=== PATIENT | male | born 1965 | race Caucasian/White ===

== ENCOUNTER 2019-11-05 17:58 | Inpatient (IN) | payer OTHER ==
[~2019-11-05] VITALS: Ht 182.9 cm; Wt 122.5 kg
--- OUTSIDE RECORDS SUMMARY | 2019-11-05 18:02 | XMS REPORT | Continuity of Care Document ---
Author Author [facility] t Organization [facility] Address [address] [place] [address] Phone Unavailable Care Team Providers Care Data Entry Representative Name Role Phone Jeovany Aquino DO Attphys Ling RODRIGUEZ, Xiao Reed Attphys Doctor Unassigned, Name No Attphys Unavailable Nida RODRIGUEZ, Chanel Attphys Lab, - [facility] Attphys Unavailable Gabriel RODRIGUEZ, Jennifer Attphys Ling RODRIGUEZ, Xiao Reed Admphys Problems This patient has no known problems. Allergies, Adverse Reactions, Alerts This patient has no known allergies or adverse reactions. Medications This patient has no known medications. Procedures This patient has no known procedures. Encounters Start Date/Time End Date/Time [facility] ID Source 2019-10-10 08:12:52 2019-10-10 15:15:00 Emergency M Jeovany Blood Candice Marie [facility] ([facility]) [id number] 2019-10-07 00:00:00 2019-10-07 00:00:00 Orders Only D octor Unassigned, [place] [facility] [id number] 2019-09-10 00:00:00 2019-09-10 00:00:00 Orders Only D octor Unassigned, [place] [facility] [id number] 2019-08-25 09:00:00 2019-08-25 09:10:00 Telemedicine Visit EzequielChanel akins [facility] [id number] 2019-07-29 00:00:00 2019-07-29 00:00:00 Orders Only D octor Unassigned, [place] [facility] [id number] 2019-07-27 07:31:03 2019-07-27 07:46:03 Orthodontic Treatment Coordinator Visit Tameka florence [facility] ([facility]) [id number] 2019-07-22 00:00:00 2019-07-22 00:00:00 [facility] [id number] 2019-07-21 14:30:45 2019-07-21 14:50:45 Office Visit Cindy denise [facility] [id number] Results This patient has no known results.
[2019-11-05] MEDS ORDERED: MEPERIDINE HCL/PF 25 MG/0.5 ML AMP IV PRN (18:30)
--- NOTE | 2019-11-05 19:00 | NUR ---
Completed bedside nursing shift report with morning nurse. Pt alert and oriented to name, lying in bed HOB 30 degrees. c/o severe pain to rectum. Call light within reach. Bed low and locked. Will continue to monitor.
[2019-11-05] MEDS ORDERED: HYDRALAZINE HCL 20 MG/ML VIAL IV PRN (19:30)
[2019-11-05] MEDS ORDERED: NICOTINE 21 MG/EA PATCH TOP PRN (19:30)
[2019-11-05 20:00] VITALS: BP 142/89
[2019-11-05 20:21] LABS: BASOPHILS % 0.2 % (0.0-1.0); EOSINOPHILS % 0.3 % (0.0-6.0); HEMATOCRIT 32.4 % (38.2-49.6); HEMOGLOBIN 10.3 g/dL (14.0-18.0); LYMPHOCYTES # (AUTO) 1.9 (1.0-3.2); LYMPHOCYTES % 15.8 % (18.0-39.1); MEAN CORPUSCULAR HEMOGLOBIN 29.3 pg (28-32); MEAN CORPUSCULAR HGB CONC 31.8 g/dL (31-35); MONOCYTES # (AUTO) 0.9 (0.2-0.8); NEUTROPHILS # (AUTO) 9.2 (2.1-6.9); NEUTROPHILS % 75.3 % (38.7-80.0); PLATELET COUNT 399 x10e3/uL (140-360); RED BLOOD COUNT 3.52 x10e6/uL (4.3-5.7); RED CELL DISTRIBUTION WIDTH 13.6 % (11.7-14.4)
[2019-11-05 20:38] LABS: ALANINE AMINOTRANSFERASE 16 IU/L (0-55); ALBUMIN 2.9 g/dL (3.5-5.0); ALBUMIN/GLOBULIN RATIO 0.8 (0.8-2.0); ALKALINE PHOSPHATASE 70 IU/L (40-150); ANION GAP 16.6 mmol/L (8-16); BLOOD UREA NITROGEN 15 mg/dL (7-26); BUN/CREATININE RATIO 15 (6-25); CALCIUM 8.6 mg/dL (8.4-10.2); CARBON DIOXIDE 25 mmol/L (22-29); CHLORIDE 106 mmol/L (98-107); CREATININE, SERUM 1.02 mg/dL (0.72-1.25); EST GLOMERULAR FILTRATION RATE > 60 ML/MIN (60-); GLUCOSE 89 mg/dL (74-118); POTASSIUM 3.6 mmol/L (3.5-5.1); SODIUM 144 mmol/L (136-145)
[2019-11-05 20:49] LABS: ERYTHROCYTE SEDIMENTATION RATE 79 mm/hr (0-13)
[2019-11-05] MEDS ORDERED: SODIUM CHLORIDE 0.9% 250ML 250 ML ONE (21:06)
[2019-11-05] MEDS: METRONIDAZOLE 500MG/NS 100ML 100 ML IV SCH (21:15)
[2019-11-05] MEDS: MORPHINE SULFATE INJ 4 MG/ML INJ 1ML IV PRN (21:15)
--- NOTE | 2019-11-05 21:15 | NUR ---
x2 attempts unsuccessfully for IV, charged nurse started 20g IV right hand, Pt tolerated well. Addendum: 11/06/19 at 0342 by Joel Centeno RN prn IV morphine 4mg given for 9/10 rectal pain.
[2019-11-05] MEDS: PANTOPRAZOLE 40 MG 10ML VIAL IV SCH (21:22)
--- NOTE | 2019-11-05 21:30 | NUR ---
x1 attempt 20g IV right AC for CT scan with contrast, Pt tolerated well.
[2019-11-05] MEDS ORDERED: SODIUM CHLORIDE 0.9% 50ML 50 ML ONE (21:34)
[2019-11-05] MEDS ORDERED: IOPAMIDOL 370 MG/ML 200 ML INFUS..BTL INJ ONE (21:34)
--- NOTE | 2019-11-05 22:18 | Diagnostic Imaging Report ---
EXAM: CT Abdomen and Pelvis WITH contrast INDICATION: ^JEANNA DZ ^[id number] ^0 ^Y COMPARISON: None. TECHNIQUE: Abdomen and pelvis were scanned utilizing a multidetector helical scanner from the lung base to the pubic symphysis after administration of IV contrast. Coronal and sagittal reformations were obtained. Dose modulation, iterative reconstruction, and/or weight based adjustment of the mA/kV was utilized to reduce the radiation dose to as low as reasonably achievable. Routine protocol was performed. Scan was performed when during portal venous phase. IV CONTRAST: 100 mL of Isovue-370 ORAL CONTRAST: None COMPLICATIONS: None RADIATION DOSE: Total DLP: 788.32 mGy*cm Estimated effective dose: (DLP x 0.015 x size factor) mSv CTDIvol has been reviewed. It is below the limits set by the Radiation Protocol Committee (RPC). FINDINGS: LINES and TUBES: None. LOWER THORAX: Unremarkable HEPATOBILIARY: No focal hepatic lesions. No biliary ductal dilation. GALLBLADDER: No radio-opaque stones or sludge. No wall thickening. SPLEEN: No splenomegaly. PANCREAS: No focal masses or ductal dilatation. ADRENALS: No adrenal nodules KIDNEYS/URETERS: Kidneys enhance symmetrically. No hydronephrosis. No cystic or solid mass lesions. No stones. GI TRACT: No abnormal distention or evidence of bowel obstruction. Mild wall thickening of the sigmoid colon. Appendix is normal. PELVIC ORGANS/BLADDER: Unremarkable. LYMPH NODES: No lymphadenopathy. VESSELS: Unremarkable. PERITONEUM / RETROPERITONEUM: No free air or fluid. BONES: Degenerative changes of spine, most notable at L4-L5. SOFT TISSUES: Unremarkable. IMPRESSION: 1. Mild sigmoid colon wall thickening without mucosal hyperenhancement or surrounding inflammation, could be due to underdistention or mild infectious/inflammatory colitis in the appropriate clinical context. Signed by: Dr. Santiago Chavez MD on 11/05/2019 10:15 PM
[2019-11-05] MEDS: METHYLPREDNISOLONE SOD SUCC 125 MG/2ML VIAL IV SCH (22:28)
[2019-11-05 22:30] VITALS: BP 142/89
[2019-11-05] MEDS ORDERED: PRILOSEC10 M1 (22:40)
[2019-11-05] MEDS ORDERED: PENTASA500 MG PO (22:40)
[2019-11-05] MEDS ORDERED: NORCO 10-325 T1 EACH PO (22:41)
[2019-11-05 22:43] VITALS: BP 142/89
[2019-11-05] MEDS: AZTREONAM 1 GM/NS 50 ML 50 ML IV SCH (23:00)
[2019-11-06] VITALS (8 sets, daily range): BP systolic 125–166; BP diastolic 73–90
[2019-11-06] MEDS: MORPHINE SULFATE INJ 4 MG/ML INJ 1ML IV PRN ×6 (00:30→19:45)
--- NOTE | 2019-11-06 01:00 | Consultation ---
DATE OF CONSULTATION: 11/05/2019 HISTORY OF PRESENT ILLNESS: The patient is a 54-year-old very well known to me who has a history of Crohn's disease and he had a colonoscopy one month ago, which showed evidence of active Crohn's. He has been placed on the p.o. prednisone and along with his Pentasa, but he continued to have a problems with abdominal pain, diarrhea and rectal bleeding. He failed outpatient treatment and he is admitted to the hospital for further management. He is waiting to start on Humira and so far his insurance has not approved that he yet. PAST MEDICAL HISTORY: Significant for history of Crohn's disease as mentioned before. ALLERGIES: NONE. SOCIAL HISTORY: No alcohol use. MEDICATIONS: At home, including Pentasa and also Nexium, prednisone on a tapering dose and he is waiting. SOCIAL HISTORY: No alcohol use. FAMILY HISTORY: Noncontributory. REVIEW OF SYSTEMS: Denies any chest pain. Denies any shortness of breath. Denies any dysphagia, odynophagia. Denies any dysuria, hematuria, or any kind of syncopal episode. PHYSICAL EXAMINATION: GENERAL: The patient is awake, alert, appears to be stable, in no acute distress at this point. VITAL SIGNS: Afebrile, currently with stable vital signs. HEAD, EYES, EARS, NOSE, AND THROAT: Normocephalic, atraumatic. Sclerae are anicteric. NECK: Supple. HEART: Regular. ABDOMEN: There is no distention at this point. There is diffuse tenderness, and there is no rebound or mass. IMPRESSION: 1. Exacerbations of Crohn's disease. Failed outpatient treatment with p.o. prednisone. 2. History of reflux. RECOMMENDATION: Admit to the hospital. We will obtain a CT scan, labs, start on Solu-Medrol IV and also with IV antibiotic. Also obtain stool for C diff as well as COVID test. MD KAMILLA Bobo/MODL /[id number] cc: Mohamud Avilez MD
--- NOTE | 2019-11-06 02:30 | History and Physical ---
CHIEF COMPLAINT: Persistent rectal bleed for the past days and also abdominal pain. HISTORY OF PRESENT ILLNESS: This is a 54-year-old male, who was diagnosed with Crohn's disease back in 2001. The patient since then has off and on exacerbation. He recently had an endoscopy, both upper and lower endoscopy done. He has some ulcer and ulcer areas in the colon. He was started on oral prednisone for the past three weeks, did not improve. Matter of fact, he for the past week or so, having increasing rectal bleed, bright red blood per rectum associated with abdominal pain quite significantly that the patient is now admitted to the hospital for IV steroids, antibiotics, and pain control. PAST MEDICAL HISTORY: Crohn's disease, moderate obesity, reflux gastritis, hypertension, chronic anemia secondary to Crohn's disease, and lower back herniated disk. PAST SURGICAL HISTORY: Colonoscopy, lower back surgery, hiatal hernia repair, and tonsillectomy. SOCIAL HISTORY: The patient is a smoker. He does not drink alcohol. No regular drugs. ALLERGIES: NO KNOWN ALLERGIES. CURRENT MEDICATION: At home, aspirin, prednisone, Prilosec, Lovaza, [place] 10 mg, Pentasa. PHYSICAL EXAMINATION: VITAL SIGNS: Temperature is 98, blood pressure 136/62, pulse rate is 90, and respirations 18. GENERAL: The patient is awake. He is not in any distress. He does have some abdominal pain. HEENT: Normocephalic and atraumatic. Pupils reactive. Anicteric. NECK: Supple grossly. PULMONARY: Diminished breath sounds. CARDIOVASCULAR: Regular rate and rhythm. ABDOMEN: Obese. Tenderness with no guarding or rebound tenderness. EXTREMITIES: No cyanosis or edema. NEUROLOGIC: There is no focal deficit. Moving all extremities. LABORATORY: Still pending. CT scan of abdomen and pelvis pending. IMPRESSION: 1. Exacerbation of Crohn's disease, failed outpatient treatment with prednisone, Pentasa, and Lovaza. 2. History of biologic treatment. Did not agreeable with Remicade. 3. Rectal bleed secondary to the above. 4. Abdominal pain from the above. 5. Multiple baseline problems. PLAN: Obtain outpatient lab work including screening for COVID, in case the patient will need procedures. C. diff toxin, CBC, CMP, CRP with ESR and finally the TSH. Azactam 1 g q.8. Metronidazole 500 mg IV q.8. Solu-Medrol 60 mg IV q.8. Morphine sulfate 4 mg IV q.3 p.r.n. for pain. Protonix 40 mg q.12. Nicotine patch as needed. Hydralazine p.r.n. We will monitor the patient closely and adjust his medication depending on the lab results, CT scan and check the patient's hemoglobin and hematocrit as well. MD YENY Morales/PADMAJA /[id number]
[2019-11-06] MEDS: DEXTROSE 5%/0.45% SOD CHL 1,000 ML IV SCH ×2 (03:20→21:00)
[2019-11-06] MEDS: METRONIDAZOLE 500MG/NS 100ML 100 ML IV SCH ×3 (04:52→21:00)
[2019-11-06] MEDS: AZTREONAM 1 GM/NS 50 ML 50 ML IV SCH ×3 (06:00→22:44)
[2019-11-06] MEDS: METHYLPREDNISOLONE SOD SUCC 125 MG/2ML VIAL IV SCH ×3 (06:01→22:00)
--- NOTE | 2019-11-06 06:47 | NUR ---
BS ROUNDS COMPLETED WITH MORNING NURSE, PT NO ACUTE DISTRESS.
--- NOTE | 2019-11-06 07:26 | NUR ---
PATIENT IN BED WITH HEAD OF BED ELEVATED WATCHING TV, NO DISTRESS NOTED. IV FLUID INFUSING ORDERED. BED IN LOWER POSITION, CALL LIGHT AT REACH.
[2019-11-06] MEDS: PANTOPRAZOLE 40 MG 10ML VIAL IV SCH ×2 (09:15→21:00)
[2019-11-06] MEDS: MESALAMINE 500 MG CAPCR PO SCH ×4 (09:16→21:00)
[2019-11-06] MEDS ORDERED: LEVOFLOXACIN 500MG/D5W 100ML 100 ML IV SCH (11:00)
--- NOTE | 2019-11-06 11:19 | NUR ---
STOOL SPECIMEN COLLECTED AND SENT TO THE LAB.
--- NOTE | 2019-11-06 16:04 | NUR ---
SPOKE WITH DR MORLEY REGARDING ABNORMAL LAB RESULT, NO NEW ORDER RECEIVED.
--- NOTE | 2019-11-06 18:55 | NUR ---
Completed bedside nursing report with morning nurse. Pt alert and orient, lying in bed HOB 45 degrees. c/o rectal/abd pain, will f/u with pain regime. Call light within reach. Bed low and locked.
[2019-11-07] VITALS (10 sets, daily range): BP systolic 123–149; BP diastolic 58–90
[2019-11-07] MEDS: METRONIDAZOLE 500MG/NS 100ML 100 ML IV SCH ×3 (04:58→21:10)
[2019-11-07] MEDS: MORPHINE SULFATE INJ 4 MG/ML INJ 1ML IV PRN ×4 (06:00→14:20)
[2019-11-07] MEDS: METHYLPREDNISOLONE SOD SUCC 125 MG/2ML VIAL IV SCH ×3 (06:00→22:13)
[2019-11-07] MEDS: AZTREONAM 1 GM/NS 50 ML 50 ML IV SCH ×3 (06:45→21:11)
[2019-11-07 07:09] LABS: BASOPHILS % 0.2 % (0.0-1.0); HEMATOCRIT 38.2 % (38.2-49.6); HEMOGLOBIN 11.9 g/dL (14.0-18.0); LYMPHOCYTES # (AUTO) 1.2 (1.0-3.2); MEAN CORPUSCULAR HEMOGLOBIN 28.5 pg (28-32); MEAN CORPUSCULAR HGB CONC 31.2 g/dL (31-35); MEAN CORPUSCULAR VOLUME 91.4 fL (81-99); MONOCYTES # (AUTO) 0.6 (0.2-0.8); MONOCYTES % 3.6 % (4.4-11.3); NEUTROPHILS # (AUTO) 15.5 (2.1-6.9); NEUTROPHILS % 88.4 % (38.7-80.0); PLATELET COUNT 507 x10e3/uL (140-360); RED BLOOD COUNT 4.18 x10e6/uL (4.3-5.7); RED CELL DISTRIBUTION WIDTH 13.3 % (11.7-14.4)
--- NOTE | 2019-11-07 07:18 | NUR ---
PATIENT IN BED RESTING WITH EYES CLOSED, NO DISTRESS NOTED. IV ANTIBIOTIC INFUSING ORDERED. BED IN LOWER POSITION, CALL LIGHT AT REACH.
[2019-11-07] MEDS: MESALAMINE 500 MG CAPCR PO SCH ×4 (09:09→21:10)
[2019-11-07] MEDS: PANTOPRAZOLE 40 MG 10ML VIAL IV SCH ×2 (09:09→21:10)
[2019-11-07] MEDS ORDERED: VANCOMYCIN 250MG/5ML ORAL SOLN PO SCH (10:30)
--- NOTE | 2019-11-07 12:01 | NUR ---
MD IN TO SEE PATIENT, NEW ORDER RECEIVED.
--- NOTE | 2019-11-07 15:31 | NUR ---
PATIENT OUT OF BED TO CHAIR TALKING TO FAMILY MEMBER VISITING. CALL LIGHT AT REACH.
[2019-11-07] MEDS: DEXTROSE 5%/0.45% SOD CHL 1,000 ML IV SCH ×2 (15:39→19:51)
[2019-11-07] MEDS: HYDROCODONE/APAP 10MG-325MG TAB PO PRN ×2 (16:20→22:00)
[2019-11-07] MEDS: VANCOMYCIN 250MG/5ML ORAL SOLN PO SCH (18:00)
--- NOTE | 2019-11-07 19:15 | NUR ---
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
[2019-11-08] VITALS (9 sets, daily range): BP systolic 131–166; BP diastolic 82–91
[2019-11-08] MEDS: VANCOMYCIN 250MG/5ML ORAL SOLN PO SCH ×5 (00:27→23:56)
[2019-11-08] MEDS: MORPHINE SULFATE INJ 4 MG/ML INJ 1ML IV PRN ×3 (02:44→13:05)
[2019-11-08] MEDS: METRONIDAZOLE 500MG/NS 100ML 100 ML IV SCH ×3 (04:31→23:37)
[2019-11-08] MEDS: HYDROCODONE/APAP 10MG-325MG TAB PO PRN ×4 (04:33→23:42)
[2019-11-08] MEDS: AZTREONAM 1 GM/NS 50 ML 50 ML IV SCH ×3 (05:26→23:41)
[2019-11-08] MEDS: METHYLPREDNISOLONE SOD SUCC 125 MG/2ML VIAL IV SCH ×3 (05:26→22:00)
[2019-11-08 06:34] LABS: BASOPHILS % 0.1 % (0.0-1.0); HEMATOCRIT 33.7 % (38.2-49.6); HEMOGLOBIN 10.5 g/dL (14.0-18.0); LYMPHOCYTES # (AUTO) 0.6 (1.0-3.2); LYMPHOCYTES % 5.3 % (18.0-39.1); MEAN CORPUSCULAR HEMOGLOBIN 28.8 pg (28-32); MEAN CORPUSCULAR HGB CONC 31.2 g/dL (31-35); MEAN CORPUSCULAR VOLUME 92.3 fL (81-99); MONOCYTES # (AUTO) 0.3 (0.2-0.8); MONOCYTES % 2.2 % (4.4-11.3); NEUTROPHILS # (AUTO) 10.7 (2.1-6.9); NEUTROPHILS % 91.4 % (38.7-80.0); PLATELET COUNT 403 x10e3/uL (140-360); RED BLOOD COUNT 3.65 x10e6/uL (4.3-5.7); RED CELL DISTRIBUTION WIDTH 13.2 % (11.7-14.4)
[2019-11-08 06:48] LABS: ANION GAP 16.2 mmol/L (8-16); BLOOD UREA NITROGEN 16 mg/dL (7-26); BUN/CREATININE RATIO 18 (6-25); CALCIUM 9.1 mg/dL (8.4-10.2); CARBON DIOXIDE 23 mmol/L (22-29); CHLORIDE 106 mmol/L (98-107); CREATININE, SERUM 0.88 mg/dL (0.72-1.25); EST GLOMERULAR FILTRATION RATE > 60 ML/MIN (60-); GLUCOSE 162 mg/dL (74-118); POTASSIUM 4.2 mmol/L (3.5-5.1); SODIUM 141 mmol/L (136-145)
--- NOTE | 2019-11-08 07:15 | NUR ---
PATIENT IN BED WITH READING HIS BOOK, NO COMPLAIN VOICED. ALL PERSONAL ITEMS CLOSE TO PATIENT, CALL LIGHT AT REACH.
[2019-11-08] MEDS: DEXTROSE 5%/0.45% SOD CHL 1,000 ML IV SCH ×2 (08:45→21:00)
[2019-11-08] MEDS: PANTOPRAZOLE 40 MG 10ML VIAL IV SCH ×2 (09:17→23:37)
[2019-11-08] MEDS: MESALAMINE 500 MG CAPCR PO SCH ×4 (09:17→21:00)
--- NOTE | 2019-11-08 11:11 | NUR ---
PATIENT ASSISTED WITH SHOWER, LINENS CHANGED. OUT OF BED TO CHAIR WATCHING TV. CALL LIGHT AT REACH.
--- NOTE | 2019-11-08 15:57 | NUR ---
MD IN TO SEE PATIENT, NO NEW ORDER RECEIVED.
--- NOTE | 2019-11-08 18:32 | NUR ---
PATIENT NOTED WITH B/P OF 161/85. PRN HYDRALAZINE GIVEN ORDERED. B/P RECHECKED WITH THE READING OF 140/68. WILL CLOSELY MONITOR.
--- NOTE | 2019-11-08 18:52 | NUR ---
BEDSIDE SHIFT REPORT GIVEN TO ON COMING NURSE. PATIENT IN BED WITH CALL LIGHT AT REACH.
--- NOTE | 2019-11-08 19:10 | NUR ---
Bedside shift report received from Jeni CARPIO.Pt is aleert and oriented x3. Respirations are even and unlabored.piv rt hand 20 g - site healthy.isolation for CDif.Call light within reach. Bed in low position.
[2019-11-09] VITALS (8 sets, daily range): BP systolic 119–164; BP diastolic 68–94
[2019-11-09] MEDS: METRONIDAZOLE 500MG/NS 100ML 100 ML IV SCH ×3 (06:09→20:53)
[2019-11-09] MEDS: VANCOMYCIN 250MG/5ML ORAL SOLN PO SCH ×3 (06:10→17:37)
[2019-11-09] MEDS: METHYLPREDNISOLONE SOD SUCC 125 MG/2ML VIAL IV SCH (06:15)
[2019-11-09] MEDS: AZTREONAM 1 GM/NS 50 ML 50 ML IV SCH ×3 (06:30→22:00)
--- NOTE | 2019-11-09 07:00 | NUR ---
RECEIVED BEDSIDE REPORT. PT IS ALERT RESTING IN BED, NO S/S OF DISTRESS. CALL LIGHT WITHIN REACH AND INSTRUCTED PT TO CALL RN FOR HELP
[2019-11-09] MEDS: MESALAMINE 500 MG CAPCR PO SCH ×4 (09:19→20:53)
[2019-11-09] MEDS: HYDROCODONE/APAP 10MG-325MG TAB PO PRN ×4 (09:20→21:45)
[2019-11-09] MEDS: PANTOPRAZOLE 40 MG 10ML VIAL IV SCH ×2 (09:23→20:53)
[2019-11-09] MEDS: METHYLPREDNISOLONE SOD SUCC 40 MG/ML VIAL 1ML IV SCH ×2 (14:00→22:00)
[2019-11-09] MEDS ORDERED: METHYLPREDNISOLONE SOD SUCC 125 MG/2ML VIAL IV SCH (14:00)
--- NOTE | 2019-11-09 15:51 | NUR ---
Dr. Steele making rounds. physician states that the patient is "not ready to go home" from a medical standpoint.
--- NOTE | 2019-11-09 18:50 | NUR ---
Nursing shift report completed bedside with morning nurse. Pt alert and oriented to name, lying in bed HOB 30 degrees. c/o mild pain to rectum, previously medicated. Call light within reach. Bed low and locked. Will continue to monitor.
[2019-11-10] VITALS (8 sets, daily range): BP systolic 124–159; BP diastolic 78–98
[2019-11-10] MEDS: HYDROCODONE/APAP 10MG-325MG TAB PO PRN ×5 (03:20→20:30)
[2019-11-10] MEDS: METRONIDAZOLE 500MG/NS 100ML 100 ML IV SCH ×3 (05:30→20:53)
[2019-11-10] MEDS: VANCOMYCIN 250MG/5ML ORAL SOLN PO SCH ×4 (05:53→17:40)
[2019-11-10] MEDS: METHYLPREDNISOLONE SOD SUCC 40 MG/ML VIAL 1ML IV SCH ×3 (05:53→21:49)
[2019-11-10 06:31] LABS: BASOPHILS % 0.2 % (0.0-1.0); EOSINOPHILS % 0.1 % (0.0-6.0); HEMATOCRIT 35.2 % (38.2-49.6); HEMOGLOBIN 10.9 g/dL (14.0-18.0); LYMPHOCYTES # (AUTO) 1.2 (1.0-3.2); MEAN CORPUSCULAR HEMOGLOBIN 28.2 pg (28-32); MONOCYTES # (AUTO) 0.9 (0.2-0.8); MONOCYTES % 8.1 % (4.4-11.3); NEUTROPHILS # (AUTO) 8.4 (2.1-6.9); NEUTROPHILS % 78.7 % (38.7-80.0); PLATELET COUNT 389 x10e3/uL (140-360); RED BLOOD COUNT 3.87 x10e6/uL (4.3-5.7); RED CELL DISTRIBUTION WIDTH 13.4 % (11.7-14.4)
[2019-11-10] MEDS: AZTREONAM 1 GM/NS 50 ML 50 ML IV SCH ×3 (06:37→21:49)
[2019-11-10 06:57] LABS: ANION GAP 12.3 mmol/L (8-16); BLOOD UREA NITROGEN 19 mg/dL (7-26); BUN/CREATININE RATIO 21 (6-25); CALCIUM 8.3 mg/dL (8.4-10.2); CARBON DIOXIDE 27 mmol/L (22-29); CHLORIDE 107 mmol/L (98-107); CREATININE, SERUM 0.92 mg/dL (0.72-1.25); EST GLOMERULAR FILTRATION RATE > 60 ML/MIN (60-); GLUCOSE 97 mg/dL (74-118); POTASSIUM 4.3 mmol/L (3.5-5.1); SODIUM 142 mmol/L (136-145)
[2019-11-10] MEDS: MESALAMINE 500 MG CAPCR PO SCH ×4 (08:47→20:53)
[2019-11-10] MEDS: PANTOPRAZOLE 40 MG 10ML VIAL IV SCH ×2 (08:47→20:53)
[2019-11-10] MEDS: MORPHINE SULFATE INJ 4 MG/ML INJ 1ML IV PRN ×4 (13:24→22:35)
--- NOTE | 2019-11-10 18:55 | NUR ---
Completed bedside nursing report with morning nurse. Pt alert and orient, lying in bed HOB 30 degrees. c/o rectal pain, previously medicated. Call light within reach. Bed low and locked.
[2019-11-10] MEDS: ZOLPIDEM TARTRATE 10 MG TAB PO SCH (21:00)
[2019-11-11] VITALS (8 sets, daily range): BP systolic 142–159; BP diastolic 80–96
[2019-11-11] MEDS: HYDROCODONE/APAP 10MG-325MG TAB PO PRN ×5 (04:45→21:14)
[2019-11-11] MEDS: METRONIDAZOLE 500MG/NS 100ML 100 ML IV SCH ×3 (04:50→20:59)
[2019-11-11] MEDS: VANCOMYCIN 250MG/5ML ORAL SOLN PO SCH ×4 (05:57→16:54)
[2019-11-11] MEDS: METHYLPREDNISOLONE SOD SUCC 40 MG/ML VIAL 1ML IV SCH ×3 (05:57→22:01)
[2019-11-11] MEDS: AZTREONAM 1 GM/NS 50 ML 50 ML IV SCH ×3 (05:57→22:14)
[2019-11-11] MEDS: MORPHINE SULFATE INJ 4 MG/ML INJ 1ML IV PRN (07:10)
[2019-11-11] MEDS: PANTOPRAZOLE 40 MG 10ML VIAL IV SCH ×2 (08:55→20:59)
[2019-11-11] MEDS: MESALAMINE 500 MG CAPCR PO SCH ×4 (08:55→21:00)
[2019-11-11] MEDS ORDERED: SODIUM CHLORIDE 0.9% 250ML 250 ML ONE (12:54)
--- NOTE | 2019-11-11 17:14 | NUR ---
Nutrition Screen Note RD Recommendation for Physician: -Continue current diet as ordered Plan of Care: RD following, monitoring for tolerance and adequacy Nutrition reason for involvement: Length of stay Primary Diagnose(s): exacerbation of Crohns disease PMH: Crohn's disease, moderate obesity, reflux gastritis, hypertension, chronic anemia secondary to Crohn's disease, and lower back herniated disk. Ht: 72 in Wt:270 lb BMI:36.6 kg/m2 IBW:[address] Assessment: (11/11/19) Chart reviewed. Labs and meds reviewed. Pt is a 54 year old male admitted with exacerbation of Crohns diseae. It is recorded that pt has been consuming 75-100% of meals during admission. Continue current diet as tolerated and will continue to monitor. Current Diet: regular Malnutrition Evaluation (11/11/19) The patient does not meet criteria for a specified degree of malnutrition at this time. Will re-evaluate at follow-up as appropriate. Diet Education Needs Assessment: Diet education not indicated. Pt is on a regular diet Nutrition Care Level: low Signed: Kylah Waite, RD, LD
--- NOTE | 2019-11-11 19:29 | NUR ---
Report given to oncoming nurse of patient's status. Resting in bed NO s/s of acute distress noted. Side rails upx2, call light within reach.
--- NOTE | 2019-11-11 19:56 | NUR ---
RECEIVED PT IN RESTROOM AOX3 .NO ACUTE DISTRESS NOTED .CALL LIGHT WITH IN REACH .CONTINUE TO MONITOR
[2019-11-11] MEDS: ZOLPIDEM TARTRATE 10 MG TAB PO SCH ×2 (20:59→21:00)
[2019-11-12] VITALS (8 sets, daily range): BP systolic 138–150; BP diastolic 84–92
[2019-11-12] MEDS: HYDROCODONE/APAP 10MG-325MG TAB PO PRN ×5 (01:14→21:30)
[2019-11-12] MEDS: METRONIDAZOLE 500MG/NS 100ML 100 ML IV SCH ×3 (05:05→21:16)
--- NOTE | 2019-11-12 05:53 | NUR ---
PT C/O PAIN AND GIVEN ORDERED PAIN MEDICATION .CALL LIGHT WITH IN REACH.CONTINUE TO MONITOR
[2019-11-12] MEDS: AZTREONAM 1 GM/NS 50 ML 50 ML IV SCH ×3 (05:58→22:00)
[2019-11-12] MEDS: VANCOMYCIN 250MG/5ML ORAL SOLN PO SCH ×4 (05:59→17:19)
[2019-11-12] MEDS: METHYLPREDNISOLONE SOD SUCC 40 MG/ML VIAL 1ML IV SCH (05:59)
--- NOTE | 2019-11-12 07:02 | NUR ---
BEDSIDE REPORT GIVEN TO THE ONCOMING NURSE
--- NOTE | 2019-11-12 07:30 | NUR ---
BEDSIDE ROUNDING REPORT, PT ON CONTACT ISOLATION, CALL LIGHT IN REACH, VS WNL, NO DISTRESS NOTED
[2019-11-12] MEDS: PANTOPRAZOLE 40 MG 10ML VIAL IV SCH (09:00)
[2019-11-12] MEDS: MESALAMINE 500 MG CAPCR PO SCH ×4 (09:00→21:16)
[2019-11-12] MEDS ORDERED: ALPRAZOLAM 0.25 MG TAB PO PRN (10:00)
--- NOTE | 2019-11-12 12:00 | NUR ---
PT UP, EATING WELL, VS STABLE, UP FOR SHOWER, NO LOOSE STOOL, CALL LIGHT IN REACH,
--- NOTE | 2019-11-12 17:00 | NUR ---
DR MORLEY HERE TO SEE PT, PT WILL BE DISCHARGE TOMORROW,
--- NOTE | 2019-11-12 19:32 | NUR ---
RECEIVED PT IN BED AOX3 .NO ACUTE DISTRESS NOTED .CALL LIGHT WITH IN REACH .CONTINUE TO MONITOR
[2019-11-12] MEDS: ZOLPIDEM TARTRATE 10 MG TAB PO SCH (21:00)
[2019-11-12] MEDS ORDERED: METHYLPREDNISOLONE SOD SUCC 40 MG/ML VIAL 1ML IV SCH (21:00)
[2019-11-13] VITALS: BP 138/82
[2019-11-13] MEDS: HYDROCODONE/APAP 10MG-325MG TAB PO PRN ×4 (01:30→09:42)
[2019-11-13] MEDS: METRONIDAZOLE 500MG/NS 100ML 100 ML IV SCH (02:30)
[2019-11-13 04:15] VITALS: BP 126/86
--- NOTE | 2019-11-13 05:21 | NUR ---
C/O PAIN AND GIVEN ORDERED PAIN MEDICATION .PT RESTING .CALL LIGHT WITH IN REACH .CONTINUE TO MONITOR
[2019-11-13] MEDS: AZTREONAM 1 GM/NS 50 ML 50 ML IV SCH (05:56)
[2019-11-13] MEDS: VANCOMYCIN 250MG/5ML ORAL SOLN PO SCH ×2 (05:56)
[2019-11-13] MEDS ORDERED: PANTOPRAZOLE 40 MG 10ML VIAL IV SCH (06:00)
--- NOTE | 2019-11-13 07:17 | NUR ---
BEDSIDE REPORT GIVEN TO THE ONCOMING NURSE
[2019-11-13] MEDS ORDERED: PANTOPRAZOLE SOD 40 MG TABEC PO SCH (07:30)
[2019-11-13 08:01] VITALS: BP 149/87
[2019-11-13 08:51] VITALS: BP 149/87
[2019-11-13] MEDS ORDERED: PREDNISONE 20 MG TAB PO SCH (09:00)
[2019-11-13] MEDS: MESALAMINE 500 MG CAPCR PO SCH (09:23)
--- NOTE | 2019-11-13 10:29 | Discharge Summary ---
MEDICAL RECORD TECHNICIAN: Dr. Dane Steele. FINAL DIAGNOSES: 1. Clostridium difficile colitis associated with diarrhea and foul odor stool. 2. Acute exacerbation of Crohn disease associated with inflammatory colon and bowel disease. 3. Diarrhea, much improved. 4. Abdominal pain, improving. 5. Status post dehydration. SUMMARY: A 54-year-old male with Crohn exacerbation. The patient was taking prednisone high dose 40 mg once a day, but did not improve. He was having profound diarrhea, has foul odor of stool as well and is associated with abdominal pain. His C difficile came back positive, however. The patient was placed on IV Solu-Medrol and antibiotics including oral vancomycin and IV Flagyl. The patient is doing much better. The stool is forming more solid. His abdominal pain has improved. The patient is stable. He will go home today. Resume his mesalamine and his prednisone. He will take vancomycin 250 mg 3 times a day for 10 days, Flagyl 500 mg t.i.d. for 7 days, Zofran ODT 4 mg sublingual q.4 p.r.n. for nausea and vomiting, and Tylenol No. 3 one tablet q.6 hours p.r.n. for pain until he go to see his pain management and get his Atkins. The patient is stable, discharged home. Diet as tolerated. Activity as tolerated and resume home medication. MD YENY Moarles/PADMAJA /[id number]
[2019-11-13] MEDS ORDERED: VANCOMYCIN HCL500 MG PO (10:30)
[2019-11-13] MEDS ORDERED: ZOFRAN4 MG PO (10:32)
[2019-11-13] MEDS ORDERED: FLAGYL500 MG PO (10:32)
[2019-11-13] MEDS ORDERED: TYLENOL WITH C1 EACH PO (10:34)
--- NOTE | 2019-11-13 10:54 | NUR ---
Patient discharged home, Alert with no distress, prescription given, IV canula removed with tip intact, no ss of infiltration, denies any pain or SOB, transported via wheelchair to [facility]
== END 2019-11-13 10:55 | disposition home or self-care (01) | DRG 372 ==
LOC: MED/SURG3 17:58
PROVIDERS: ADMIT Internal Medicine Gastroenterology; ATTEND Internal Medicine Gastroenterology
DX: A04.72 Enterocolitis due to Clostridium difficile, not specified as recurrent (principal); K50.919 Crohn's disease, unspecified, with unspecified complications; R19.7 Diarrhea, unspecified; E86.0 Dehydration; K44.9 Diaphragmatic hernia without obstruction or gangrene; F17.210 Nicotine dependence, cigarettes, uncomplicated; Z11.59 Encounter for screening for other viral diseases
CPT/HCPCS: 36415; 74177; 80048; 80053; 84443; 85025; 85651; 86140; 87493; 87635; 96361; J0360; J1956; J2270; J2920; J2930; J7050; J7512; Q9967